=== PATIENT | female | born 1980 ===

== ENCOUNTER 2022-03-24 17:13 | Emergency (ER) | payer MEDICAID ==
[2022-03-24 19:03] VITALS: BP 144/72
[2022-03-24] MEDS ORDERED: KETOROLAC 60 MG/2 ML INJ IM ONE (23:48)
[2022-03-24] MEDS ORDERED: dexAMETHasone 20 MG/5 ML VIAL IM ONE (23:48)
[2022-03-25 02:12] LABS: Color,Urine Yellow (Yellow)
[2022-03-25 02:15] LABS: Bacteria,Urine 2+ /HPF (Negative); Mucus,Urine 2+ /HPF
[2022-03-25 02:16] LABS: HCG Qualitative,Urine Negative (Negative)
[2022-03-25] MEDS ORDERED: LIDOCAINE-MPF (1%) 10 MG/1 ML VIAL 5 ML INFILTRATI ONE (02:36)
--- NOTE | 2022-03-25 02:43 | Emergency Department Report ---
ED Back Pain/Injury HPI - General Chief Complaint: Back Pain/Injury Stated Complaint: BACK PAIN Source: patient Limitations: No Limitations - History of Present Illness Initial Comments: Patient is a 41-year-old female with no past medical history presents to the ED with complaint of acute onset persistent low back pain, dysuria, urinary frequency and urgency for the last 1 week. Patient states that the pain has been constant and persistent despite taking [id number] medications. Patient denies vaginal bleeding, vaginal discharge, fever, chills, nausea and vomiting, diarrhea, chest pain and shortness of breath, headache, dizziness, syncope or lightheadedness. MD Complaint: back pain (lower back), other (Urinary frequency and urgency, dysuria,) -: Gradual, week(s) (1) Similar Symptoms Previously: No Place: home Radiation: none Severity: severe Severity scale (0 -10): 8 Quality: sharp, aching Consistency: constant Improves With: none Worsens With: movement, walking Context: unknown Associated Symptoms: denies other symptoms. denies: confusion, chest pain, nu mbness, difficulty walking, cough, difficulty urinating, diaphoresis, incontinence, fever/chills, headaches, abdominal pain, loss of appetite, malaise, nausea/vomiting, seizure, shortness of breath, syncope - Related Data Previous Rx's Medication Instructions Recorded Last Taken Type Fluconazole (Nf) [Diflucan TAB] 150 mg PO ONCE #2 tablet 03/25/22 Unknown Rx Ibuprofen [Motrin] 800 mg PO Q8HR PRN #30 tablet 03/25/22 Unknown Rx cephALEXin [Keflex] 500 mg PO Q6HR #40 capsule 03/25/22 Unknown Rx predniSONE [Deltasone] 40 mg PO QDAY #10 tab 03/25/22 Unknown Rx tiZANidine [Zanaflex 4mg TAB] 4 mg PO Q8H PRN #30 tab 03/25/22 Unknown Rx traMADoL [Ultram] 50 mg PO Q6HR PRN #12 tablet 03/25/22 Unknown Rx Allergies Allergy/AdvReac Type Severity Reaction Status Date / Time No Known Allergies Allergy Unverified 10/21/15 12:00 ED Review of Systems ROS: Stated complaint: BACK PAIN Other details as noted in HPI Constitutional: denies: chills, fever Eyes: denies: eye pain, eye discharge, vision change ENT: denies: ear pain, throat pain Respiratory: denies: cough, shortness of breath, wheezing Cardiovascular: denies: chest pain, palpitations Endocrine: no symptoms reported Gastrointestinal: denies: abdominal pain, nausea, vomiting, diarrhea Genitourinary: urgency, dysuria, frequency. denies: discharge Musculoskeletal: back pain (Low back pain), arthralgia. denies: joint swelling Skin: denies: rash, lesions Neurological: denies: headache, weakness, paresthesias Psychiatric: denies: anxiety, depression Hematological/Lymphatic: denies: easy bleeding, easy bruising ED Past Medical Hx - Social History Smoking Status: Current Every Day Smoker Substance Use Type: Alcohol, Marijuana - Medications Home Medications: Home Medications Medication Instructions Recorded Confirmed Last Taken Type Fluconazole (Nf) [Diflucan TAB] 150 mg PO ONCE #2 tablet 03/25/22 Unknown Rx Ibuprofen [Motrin] 800 mg PO Q8HR PRN #30 tablet 03/25/22 Unknown Rx cephALEXin [Keflex] 500 mg PO Q6HR #40 capsule 03/25/22 Unknown Rx predniSONE [Deltasone] 40 mg PO QDAY #10 tab 03/25/22 Unknown Rx tiZANidine [Zanaflex 4mg TAB] 4 mg PO Q8H PRN #30 tab 03/25/22 Unknown Rx traMADoL [Ultram] 50 mg PO Q6HR PRN #12 tablet 03/25/22 Unknown Rx ED Physical Exam - General Limitations: No Limitations General appearance: alert, in no apparent distress - Head Head exam: Present: atraumatic, normocephalic, normal inspection - Eye Eye exam: Present: normal appearance, PERRL, EOMI Pupils: Present: normal accommodation - ENT ENT exam: Present: normal exam, normal orophraynx, mucous membranes moist, TM's normal bilaterally, normal external ear exam - Neck Neck exam: Present: normal inspection, full ROM. Absent: tenderness - Respiratory Respiratory exam: Present: normal lung sounds bilaterally. Absent: respiratory distress, wheezes, rales, stridor, chest wall tenderness, accessory muscle use, prolonged expiratory - Cardiovascular Cardiovascular Exam: Present: regular rate, normal rhythm, normal heart sounds. Absent: systolic murmur, diastolic murmur, rubs, gallop - GI/Abdominal GI/Abdominal exam: Present: soft, normal bowel sounds. Absent: tenderness, guarding, rebound, hyperactive bowel sounds, hypoactive bowel sounds, bruit - Extremities Exam Extremities exam: Present: normal inspection, full ROM, normal capillary refill. Absent: tenderness - Back Exam Back exam: Present: normal inspection, full ROM, tenderness (Palpable lumbosacral paraspinal musculoskeletal tenderness), muscle spasm, paraspinal tenderness. Absent: CVA tenderness (L), vertebral tenderness - Neurological Exam Neurological exam: Present: alert, oriented X3, CN II-XII intact, normal gait, reflexes normal - Psychiatric Psychiatric exam: Present: normal affect, normal mood - Skin Skin exam: Present: warm, dry, intact, normal color. Absent: rash ED Course Vital Signs 03/24/22 03/25/22 03/25/22 19:01 01:19 04:38 Temperature 98.5 F 98.5 F Pulse Rate 85 85 Respiratory 14 16 14 Rate Blood Pressure 144/72 144/72 [Right] O2 Sat by Pulse 100 100 Oximetry ED Medical Decision Making - Radiology Data Radiology results: report reviewed, image reviewed - Medical Decision Making This is a 41-year-old female with no past medical history presents to the ED with complaint of acute onset persistent low back pain, dysuria, urinary frequency and urgency for the last 1 week. Patient states that the pain has been constant and persistent despite taking [id number] medications. In the ED, patient is alert and oriented x3 and is not in any distress. Patient is hemodynamically stable. Patient was treated for pain in the ED. Urinalysis showed significant urinary tract infection. Patient received antibiotics in the ED as well and was discharged home on pain medications and antibiotics and advised to follow-up with her primary care physician in 7 to 10 days for reevaluation. Patient advised return to the ED immediately if symptoms get worse - Differential Diagnosis Muscle spasm; muscle strain; UTI; Critical care attestation.: If time is entered above; I have spent that time in minutes in the direct care of this critically ill patient, excluding procedure time. ED Disposition Clinical Impression: Acute bilateral low back pain without sciatica, Spasm of muscle of lower back, Acute urinary tract infection Disposition: HOME / SELF CARE / HOMELESS Is pt being admited?: No Does the pt Need Aspirin: No Condition: Stable Instructions: Muscle Cramps and Spasms, [id number], Urinary Tract Infection, Adult, [id number], Acute Pain, Adult Additional Instructions: All lab test results were reviewed and are all nonactionable except for urinary tract infection in urinalysis. The L-spine x-ray showed no acute fractures or subluxation. Therefore your symptoms are likely due to urinary tract infection as well as muscle spasm of low back. Therefore take medication with food, drink plenty of fluids, follow-up with your primary care physician in 7 to 10 days for reevaluation or return to the ED immediately if symptoms get worse. Prescriptions: predniSONE [Deltasone] 40 mg PO QDAY #10 tab Fluconazole (Nf) [Diflucan TAB] 150 mg PO ONCE #2 tablet cephALEXin [Keflex] 500 mg PO Q6HR #40 capsule Ibuprofen [Motrin] 800 mg PO Q8HR PRN #30 tablet PRN Reason: Pain , Severe (7-10) traMADoL [Ultram] 50 mg PO Q6HR PRN #12 tablet PRN Reason: Pain tiZANidine [Zanaflex 4mg TAB] 4 mg PO Q8H PRN #30 tab PRN Reason: Muscle Spasm Referrals: [facility] [Provider Group] - 7-10 days Forms: Work/School Release Form(ED) Time of Disposition: 02:40 Print Language: IRISH
--- NOTE | 2022-03-25 02:55 | XRay Report ---
LUMBAR SPINE 3 VIEWS INDICATION / CLINICAL INFORMATION: Pain. COMPARISON: None available. FINDINGS: VERTEBRAE: No acute fracture. Scoliosis of the lumbar spine apex to the right centered at the L1-L2 i nterspace. Moderate loss of intervertebral disc space at L4-5. Moderate facet arthropathy suggested b ilaterally in the lower lumbar spine. PARASPINAL SOFT TISSUES:No significant abnormality. ADDITIONAL FINDINGS: None. IMPRESSION: 1. Scoliosis and degenerative changes as detailed. No acute osseous findings. Signer Name: Phi Atwood II, MD Signed: 03/25/2022 2:51 AM Workstation Name: [id number]
== END 2022-03-25 04:39 | disposition home or self-care (01) ==
LOC: ED 17:13
DX: M54.50 Low back pain, unspecified (principal); M62.830 Muscle spasm of back; N39.0 Urinary tract infection, site not specified; F17.200 Nicotine dependence, unspecified, uncomplicated; F10.20 Alcohol dependence, uncomplicated; F12.90 Cannabis use, unspecified, uncomplicated
CPT/HCPCS: 72100; 81001; 81025; 87076; 87086; 87186; 96372; 99283; J0696; J1100; J1885; J3490